=== PATIENT | female | born 1935 | race Caucasian/White ===

== ENCOUNTER 2016-09-04 | Outpatient (CLI) | payer MEDICARE, OTHER, MEDICAID | END 2016-09-04 12:36 | disposition critical access hospital (66) | CPT/HCPCS: A0425; A0429 ==

== ENCOUNTER 2016-09-04 12:52 | Inpatient (IN) | payer MEDICARE, OTHER, MEDICAID ==
[2016-09-04] MEDS ORDERED: HYDROcod/ACETAM 5/325 MG TABLET PO STA (12:59)
[2016-09-04] MEDS ORDERED: HYDROcod/ACETAM 5/325 MG TABLET ONE (13:04)
[2016-09-04] MEDS ORDERED: NYSTATIN POWDER 15 GM TOP STA (13:30)
[2016-09-04] MEDS ORDERED: NYSTATIN 500000 UNITS/5 ML UDC PO ONE (13:43)
[2016-09-04] MEDS ORDERED: NYSTATIN CREAM 15 GM TUBE TOP ONE (13:44)
[2016-09-04] MEDS ORDERED: SODIUM CHLORIDE FLUSH 0.9% 10 ML SYRINGE IVP PRN (15:58)
[2016-09-04] MEDS ORDERED: guaiFENesin 100 MG/5 ML UDC PO PRN (16:09)
[2016-09-04] MEDS ORDERED: MAGNESIUM HYDROXIDE 2,400 MG/30 ML UDC PO PRN (16:09)
[2016-09-04] MEDS ORDERED: DOCUSATE SODIUM 250 MG CAPSULE PO PRN (16:09)
[2016-09-04] MEDS ORDERED: BENZONATATE 100 MG CAPSULE PO PRN (16:09)
[2016-09-04] MEDS ORDERED: CALCIUM CARBONATE CHEW 500 MG TABLET PO PRN (16:09)
[2016-09-04] MEDS ORDERED: ALBUTEROL NEB 2.5 MG/3 ML INH PRN (17:06)
[2016-09-04] MEDS: DONEPEZIL 5 MG TABLET PO SCH (18:26)
[2016-09-04] MEDS: SODIUM CHLORIDE 0.9% 1,000 ML IV SCH (18:26)
[2016-09-04] MEDS: CARBIDOPA/LEVODOPA 25 MG/100 MG TABLET PO SCH (20:41)
[2016-09-04] MEDS: METOPROLOL TARTRATE 50 MG TABLET PO SCH (20:42)
[2016-09-04] MEDS: CITALOPRAM 10 MG TABLET PO SCH (20:42)
[2016-09-04] MEDS: FERROUS SULFATE 325 MG TABLET PO SCH (20:43)
[2016-09-04] MEDS: ATORVASTATIN 10 MG TABLET PO SCH (20:43)
[2016-09-04] MEDS: SENNA 8.6 MG TABLET PO SCH (20:44)
[2016-09-04] MEDS: SODIUM CHLORIDE FLUSH 0.9% 10 ML SYRINGE IVP SCH (21:36)
[2016-09-04] MEDS: NITROFURANTOIN MACRO 100 MG CAPSULE PO SCH (21:39)
[2016-09-04] MEDS: oxyCODONE 5 MG TABLET PO PRN (23:49)
[2016-09-05] MEDS: SODIUM CHLORIDE 0.9% 1,000 ML IV SCH ×3 (02:57→23:12)
[2016-09-05] MEDS: oxyCODONE 5 MG TABLET PO PRN ×2 (03:51→14:35)
[2016-09-05] MEDS: SODIUM CHLORIDE FLUSH 0.9% 10 ML SYRINGE IVP SCH ×3 (05:18→21:32)
[2016-09-05] MEDS ORDERED: SODIUM CHLORIDE 0.9% 1,000 ML IV ONE (09:01)
[2016-09-05] MEDS ORDERED: ceFAZolin 2 GM/50 ML 50 ML IV ONE (09:30)
[2016-09-05] MEDS ORDERED: LACTATED RINGERS 1,000 ML IV ONE (09:39)
[2016-09-05] MEDS ORDERED: MIDAZOLAM 2 MG/2 ML VIAL IVP ONE (09:45)
[2016-09-05] MEDS ORDERED: LIDOCAINE-PF 2% 10 ML AMP SUBQ ONE (09:45)
[2016-09-05] MEDS ORDERED: ePHEDrine 50 MG/ML AMP IVP ONE (09:45)
[2016-09-05] MEDS ORDERED: DEXAMETHASONE 4 MG/ML VIAL IVP ONE (09:45)
[2016-09-05] MEDS ORDERED: ONDANSETRON 4 MG/2 ML VIAL IVP ONE (09:45)
[2016-09-05] MEDS ORDERED: PROPOFOL 200 MG/20 ML VIAL IVP ONE (09:45)
[2016-09-05] MEDS ORDERED: ceFAZolin 1 GM VIAL IV ONE (09:45)
[2016-09-05] MEDS ORDERED: fentaNYL 100 MCG/2 ML VIAL IVP ONE (09:45)
[2016-09-05] MEDS ORDERED: BUPIVACAINE 0.25%-EPI 1:200000 PF 30 ML VIAL SUBQ ONE (09:56)
[2016-09-05] MEDS ORDERED: PROCHLORPERAZINE 10 MG/2 ML VIAL IVP PRN (10:12)
[2016-09-05] MEDS: PSYLLIUM PACKET PO SCH (10:12)
[2016-09-05] MEDS ORDERED: ACETAMINOPHEN 1,000 MG/100 ML 100 ML IV PRN (10:12)
[2016-09-05] MEDS: POLYETHYLENE GLYCOL 3350 17 GM PACKET PO SCH (10:12)
[2016-09-05] MEDS ORDERED: MORPHINE 2 MG/ML SYRINGE IVP PRN (10:12)
[2016-09-05] MEDS ORDERED: SODIUM CHLORIDE FLUSH 0.9% 10 ML SYRINGE IVP PRN (10:12)
[2016-09-05] MEDS ORDERED: ALBUTEROL NEB 2.5 MG/3 ML INH ONE (10:16)
[2016-09-05] MEDS ORDERED: RACEPINEPHRINE 2.25% NEB INH ONE (10:24)
[2016-09-05] MEDS ORDERED: SODIUM CHLORIDE INHALATION 3 ML NEB ONE (10:24)
[2016-09-05] MEDS ORDERED: diphenhydrAMINE INJ 50 MG/ML VIAL ONE (10:33)
[2016-09-05] MEDS: CARBIDOPA/LEVODOPA 25 MG/100 MG TABLET PO SCH ×2 (13:05→21:20)
[2016-09-05] MEDS: FAMOTIDINE 20 MG TABLET PO SCH (13:06)
[2016-09-05] MEDS: LORATADINE 10 MG TABLET PO SCH (13:06)
[2016-09-05] MEDS: NITROFURANTOIN MACRO 100 MG CAPSULE PO SCH ×2 (13:06→21:32)
[2016-09-05] MEDS: METOPROLOL TARTRATE 50 MG TABLET PO SCH ×2 (13:06→21:25)
[2016-09-05] MEDS: ISOSORBIDE MONONITRATE ER 30 MG TABLET PO SCH (13:07)
[2016-09-05] MEDS: FERROUS SULFATE 325 MG TABLET PO SCH ×2 (13:12→21:20)
[2016-09-05] MEDS: ASPIRIN 325 MG TABLET PO SCH (17:32)
[2016-09-05] MEDS: DONEPEZIL 5 MG TABLET PO SCH (17:32)
[2016-09-05] MEDS: ceFAZolin 2 GM/50 ML 50 ML IV SCH (17:33)
[2016-09-05] MEDS: MIN OIL/DIMETHICON/COCONUT OIL 92 GM TUBE TOP PRN (20:00)
[2016-09-05] MEDS: NYSTATIN CREAM 15 GM TUBE TOP PRN (20:00)
[2016-09-05] MEDS: ATORVASTATIN 10 MG TABLET PO SCH (21:20)
[2016-09-05] MEDS: SENNA 8.6 MG TABLET PO SCH (21:20)
[2016-09-05] MEDS: CITALOPRAM 10 MG TABLET PO SCH (21:20)
[2016-09-05] MEDS: oxyCOD/ACETAMIN 5 MG/325 MG TABLET PO PRN (21:38)
[2016-09-06] MEDS: ceFAZolin 2 GM/50 ML 50 ML IV SCH (01:55)
[2016-09-06] MEDS: oxyCOD/ACETAMIN 5 MG/325 MG TABLET PO PRN ×2 (02:01→18:22)
[2016-09-06] MEDS: SODIUM CHLORIDE FLUSH 0.9% 10 ML SYRINGE IVP SCH ×3 (05:04→20:22)
[2016-09-06] MEDS: CARBIDOPA/LEVODOPA 25 MG/100 MG TABLET PO SCH ×2 (08:10→20:21)
[2016-09-06] MEDS: FAMOTIDINE 20 MG TABLET PO SCH ×2 (08:10→08:11)
[2016-09-06] MEDS: SENNA 8.6 MG TABLET PO SCH ×2 (08:11→20:22)
[2016-09-06] MEDS: NITROFURANTOIN MACRO 100 MG CAPSULE PO SCH ×2 (08:11→20:22)
[2016-09-06] MEDS: DOCUSATE SODIUM 250 MG CAPSULE PO SCH (08:11)
[2016-09-06] MEDS: FERROUS SULFATE 325 MG TABLET PO SCH ×2 (08:11→20:21)
[2016-09-06] MEDS: ISOSORBIDE MONONITRATE ER 30 MG TABLET PO SCH (08:12)
[2016-09-06] MEDS: METOPROLOL TARTRATE 50 MG TABLET PO SCH ×2 (08:12→20:20)
[2016-09-06] MEDS: PSYLLIUM PACKET PO SCH (08:12)
[2016-09-06] MEDS: POLYETHYLENE GLYCOL 3350 17 GM PACKET PO SCH (08:12)
[2016-09-06] MEDS: LORATADINE 10 MG TABLET PO SCH (08:12)
[2016-09-06] MEDS: ASPIRIN 325 MG TABLET PO SCH ×2 (08:13→17:05)
[2016-09-06] MEDS: SODIUM CHLORIDE 0.9% 1,000 ML IV SCH ×2 (08:19→22:02)
[2016-09-06] MEDS: DONEPEZIL 5 MG TABLET PO SCH (17:05)
[2016-09-06] MEDS: CITALOPRAM 10 MG TABLET PO SCH (20:21)
[2016-09-06] MEDS: ATORVASTATIN 10 MG TABLET PO SCH (20:21)
[2016-09-06] MEDS: MIN OIL/DIMETHICON/COCONUT OIL 92 GM TUBE TOP PRN (20:40)
[2016-09-06] MEDS: NYSTATIN CREAM 15 GM TUBE TOP PRN (20:41)
[2016-09-07] MEDS: ACETAMINOPHEN 325 MG TABLET PO PRN ×2 (04:13→10:45)
[2016-09-07] MEDS: SODIUM CHLORIDE FLUSH 0.9% 10 ML SYRINGE IVP SCH ×2 (06:00→15:49)
[2016-09-07] MEDS: ASPIRIN 325 MG TABLET PO SCH (08:47)
[2016-09-07] MEDS: CARBIDOPA/LEVODOPA 25 MG/100 MG TABLET PO SCH (08:48)
[2016-09-07] MEDS: DOCUSATE SODIUM 250 MG CAPSULE PO SCH (08:49)
[2016-09-07] MEDS: FERROUS SULFATE 325 MG TABLET PO SCH (08:49)
[2016-09-07] MEDS: NITROFURANTOIN MACRO 100 MG CAPSULE PO SCH (08:53)
[2016-09-07] MEDS: SENNA 8.6 MG TABLET PO SCH (08:55)
[2016-09-07] MEDS: METOPROLOL TARTRATE 50 MG TABLET PO SCH (08:57)
[2016-09-07] MEDS: POLYETHYLENE GLYCOL 3350 17 GM PACKET PO SCH (08:58)
[2016-09-07] MEDS: PSYLLIUM PACKET PO SCH (08:58)
[2016-09-07] MEDS: ISOSORBIDE MONONITRATE ER 30 MG TABLET PO SCH (10:42)
[2016-09-07] MEDS: oxyCOD/ACETAMIN 5 MG/325 MG TABLET PO PRN (13:02)
== END 2016-09-07 16:00 | DRG 481 ==
PROC: 0QH734Z Insertion of Internal Fixation Device into Left Upper Femur, Percutaneous Approach (ICD-10-PCS; principal; 2016-09-05 09:00)
DX: S72.012A Unspecified intracapsular fracture of left femur, initial encounter for closed fracture (principal); S52.125A Nondisplaced fracture of head of left radius, initial encounter for closed fracture; S72.002A Fracture of unspecified part of neck of left femur, initial encounter for closed fracture; S09.90XA Unspecified injury of head, initial encounter; M25.562 Pain in left knee; N39.0 Urinary tract infection, site not specified; S52.122A Displaced fracture of head of left radius, initial encounter for closed fracture; W01.0XXA Fall on same level from slipping, tripping and stumbling without subsequent striking against object, initial encounter; I10 Essential (primary) hypertension; G20 Parkinson's disease; F02.80 Dementia in other diseases classified elsewhere, unspecified severity, without behavioral disturbance, psychotic disturbance, mood disturbance, and anxiety; E78.00 Pure hypercholesterolemia, unspecified; Z95.1 Presence of aortocoronary bypass graft; K59.00 Constipation, unspecified; B35.9 Dermatophytosis, unspecified; B37.2 Candidiasis of skin and nail; K21.9 Gastro-esophageal reflux disease without esophagitis; F41.8 Other specified anxiety disorders; G89.29 Other chronic pain; I25.10 Atherosclerotic heart disease of native coronary artery without angina pectoris; I25.2 Old myocardial infarction; M81.0 Age-related osteoporosis without current pathological fracture; Z66 Do not resuscitate; Z87.891 Personal history of nicotine dependence; Z91.81 History of falling; Z85.3 Personal history of malignant neoplasm of breast; Z85.22 Personal history of malignant neoplasm of nasal cavities, middle ear, and accessory sinuses; Z86.73 Personal history of transient ischemic attack (TIA), and cerebral infarction without residual deficits; Z79.82 Long term (current) use of aspirin; Z79.899 Other long term (current) drug therapy

== ENCOUNTER 2016-09-29 08:00 | Outpatient (CLI) | payer MEDICAID, MEDICARE, OTHER | END 2016-09-29 08:01 | disposition home or self-care (01) | DX: N39.0 Urinary tract infection, site not specified (principal) ==

== ENCOUNTER 2017-12-14 09:55 | Outpatient (CLI) | payer MEDICARE, OTHER, MEDICAID | END 2017-12-14 09:56 | disposition critical access hospital (66) | LOC: EMS 09:55 | PROVIDERS: ATTEND Surgery | DX: S09.92XA Unspecified injury of nose, initial encounter (principal); M25.552 Pain in left hip; W18.30XA Fall on same level, unspecified, initial encounter; Y93.01 Activity, walking, marching and hiking; Y92.098 Other place in other non-institutional residence as the place of occurrence of the external cause | CPT/HCPCS: A0425; A0429 ==

== ENCOUNTER 2017-12-14 10:14 | Emergency (ER) | payer MEDICARE, OTHER, MEDICAID ==
--- NOTE | 2017-12-14 11:00 | CT Report ---
EXAM: CT HEAD EXAM DATE: 12/14/2017 10:46 AM. CLINICAL HISTORY: Fall, facial trauma, repetitive amnesia. COMPARISON: 09/04/2016, 06/22/2016. TECHNIQUE: Multiaxial CT images were obtained from the foramen magnum to the vertex. Reformats: Coron al. IV contrast: None. In accordance with CT protocol optimization, one or more of the following dose reduction techniques w ere utilized for this exam: automated exposure control, adjustment of mA and/or KV based on patient s ize, or use of iterative reconstructive technique. FINDINGS: Parenchyma: No intraparenchymal hemorrhage. No evidence of mass, midline shift, or CT findings of acu te infarction. Areas of focal encephalomalacia in the left superior medial frontal cortex, right supe rior lateral frontal cortex, and right posterior inferior occipital cortex appear similar to the prio r exam, consistent with remote prior infarcts. Small left cerebellar lacunar infarct is unchanged. Gr ay-white differentiation is distinct. Diffuse chronic microangiopathic white matter changes are evide nt. Extraaxial Spaces: Normal for age. No subdural or epidural collections identified. Ventricles: The ventricles and cortical sulci are enlarged, consistent with age-related tissue loss. Sinuses and orbits: There is complete opacification of the right frontal sinus as seen on prior exams , likely chronic. There is evidence of prior bilateral maxillary sinus surgery. There is moderate muc osal thickening and a small amount of fluid in the bilateral maxillary sinuses. The remainder of visu alized paranasal sinuses and mastoid air cells are clear. The orbits are unremarkable. Bones: No evidence of fracture or calvarial defect. Other: None. IMPRESSION: 1. No acute intracranial hemorrhage, mass effect, or CT evidence of acute infarct. 2. Remote prior bilateral frontal and right occipital infarcts, as seen on prior exams. 3. Similar appearance of age-related volume loss and diffuse white matter changes suggestive of micro angiopathy. 4. Chronic opacification of the right frontal sinus. There is evidence of prior bilateral maxillary s inus surgery there is moderate mucosal thickening and a small amount of fluid in the bilateral maxill arcadio sinuses. [facility] Referring Provider Line: [phone] SITE ID: [id number]
--- NOTE | 2017-12-14 11:17 | ED Physician Documentation ---
PD HPI Fall - Stated complaint Stated Complaint: GLF - Chief complaint Chief Complaint: Trauma Hd/Nk - History obtained from History obtained from: Patient, Family, EMS - History of Present Illness Mechanism of injury: Slipped Fall distance: Standing position Where injury occurred: Home Timing - onset: Today Injury(ies) location: Face, Left Lower Extremity Quality of pain: Pain Associated symptoms: No: LOC, AMS, Amnesia, Ear drainage, Nasal drainage, Neck pain, Weakness, Paresthesias, Dyspnea, Nausea / vomiting Symptoms improve with: Rest Worsens with: Movement, Palpation Contributing factors: Anticoagulated (no plavix) Similar symptoms before: Has not had sx before Recently seen: Not recently seen - Additional information Additional information: 82-year-old female with some cognitive decline has been using a walker in her home and this was recently changed when the carpet was changed to linoleum carlos. Today the patient was using her walker on the carlos and she got going a bit too fast and fell forward onto her face. She complains of some pain in her chin and a fat lip and has some pain in her left knee as well. She denies any loss of consciousness with the fall and she denies any nausea or dizziness associated. Review of Systems Constitutional: denies: Fever Eyes: denies: Decreased vision Ears: denies: Ear pain Nose: denies: Congestion Throat: denies: Sore throat Cardiac: denies: Chest pain / pressure Respiratory: denies: Dyspnea, Cough GI: denies: Vomiting PD PAST MEDICAL HISTORY - Past Medical History Past Medical History: Yes Cardiovascular: Hypertension, High cholesterol, Coronary artery disease, [place], Other GI: GERD Psych: Depression, Anxiety Musculoskeletal: Osteoarthritis Derm: Other - Past Surgical History Past Surgical History: Yes /DETAIL ASSEMBLER: Mastectomy Cardiovascular: CABG - Present Medications Home Medications: Ambulatory Orders Medication Instructions Recorded Confirmed Citalopram Hydrobromide 20 mg PO QPM 03/02/14 09/05/16 [Citalopram HBr] Valsartan [Diovan] 160 mg PO QPM 03/02/14 09/05/16 Donepezil [Aricept] 5 mg PO QDDINNER 10/16/15 09/05/16 Metoprolol Tartrate 50 mg PO BID 10/16/15 09/05/16 Psyllium [Metamucil] 1 packet PO DAILY 03/30/16 09/05/16 Senna [Senokot] 17.2 mg PO QPM 03/30/16 09/05/16 Aspirin [Aspirin EC] 162 mg PO DAILY 06/22/16 09/05/16 Atorvastatin Calcium 20 mg PO QPM 06/22/16 09/05/16 Calcium Carbonate [Tums (Calcium 1,000 mg PO Q4H PRN 06/22/16 09/05/16 Carbonate 500mg)] Carbidopa/Levodopa 1 tab PO BID 06/22/16 09/05/16 [Carbidopa-Levodopa 25-100 Tab] Docusate Sodium 250Mg Capsule 250 mg PO Q24H PRN 06/22/16 09/05/16 [Colace 250Mg Capsule] Ferrous Sulfate [Iron] 325 mg PO BID 06/22/16 09/05/16 Guaifenesin [Tussin] 200 mg PO Q4H PRN 06/22/16 09/05/16 Isosorbide Mononitrate ER [Imdur] 15 mg PO DAILY 06/22/16 09/05/16 Loratadine [Claritin] 10 mg PO DAILY 06/22/16 09/05/16 Magnesium Hydroxide [Milk of 2,400 mg PO Q6H PRN 06/22/16 09/05/16 Magnesia] traZODone [Desyrel] 75 mg PO QPM 06/22/16 09/05/16 Nystatin Cream [Mycostatin Cream] 1 applic TOP BID PRN #1 tube 06/23/16 09/05/16 Diazepam [Valium] 2 mg PO Q12H PRN 09/05/16 09/05/16 Megestrol Acetate [Megace] 400 mg PO BID 09/05/16 09/05/16 - Allergies Allergies/Adverse Reactions: Allergies Allergy/AdvReac Type Severity Reaction Status Date / Time lidocaine Allergy Unknown Unknown Verified 09/04/16 12:59 - Social History Does the pt smoke?: No Smoking Status: Never smoker Does the pt drink ETOH?: No Does the pt have substance abuse?: No - Immunizations Immunizations are current?: Yes - POLST Patient has POLST: Yes PD ED PE NORMAL - Vitals Vital signs reviewed: Yes (hypertensive) - General General: No acute distress, Well developed/nourished - HEENT HEENT: PERRL, EOMI, Ears normal, Moist mucous membranes, Other (There is a bruise to the left side of the chin ) - Neck Neck: Supple, no meningeal sign - Cardiac Cardiac: RRR, No murmur - Respiratory Respiratory: No respiratory distress, Clear bilaterally - Abdomen Abdomen: Soft, Non tender - Back Back: No CVA TTP, No spinal TTP - Derm Derm: Normal color, Warm and dry, No rash - Extremities Extremities: No deformity, No edema, Other (There is tenderness to the medial joint line on the left side. The ligaments are stable and the distal n/v is intact. ) Results - Vitals Vitals: Vital Signs - 24 hr 12/14/17 12/14/17 12/14/17 10:22 11:55 14:02 Temperature 36.4 C L Heart Rate 63 56 L 70 Respiratory 16 16 16 Rate Blood Pressure 182/90 H 164/69 H 169/96 H O2 Saturation 100 100 100 Oxygen O2 Source [] Room air O2 Source Room air - Labs Labs: Laboratory Tests 12/14/17 11:00 Urine Color YELLOW Urine Clarity CLEAR Urine pH 7.5 Ur Specific [place] 1.020 Urine Protein NEGATIVE Urine Glucose (UA) NEGATIVE Urine Ketones NEGATIVE Urine Occult Blood NEGATIVE Urine Nitrite NEGATIVE Urine Bilirubin NEGATIVE Urine Urobilinogen 0.2 (NORMAL) Ur Leukocyte Esterase NEGATIVE Ur Microscopic Review NOT INDICATED Urine Culture Comments NOT INDICATED - Rads (name of study) CT head without Radiology: Prelim report reviewed (Impression: 1. No acute intracranial hemorrhage, mass-effect, or CT evidence of acute infarct. Remote prior bilateral frontal and right occipital infarcts as seen on prior exams. Similar appearance of age-related volume loss and diffuse white matter changes consistent suggestive of microangiopathy. Chronic opacification of the right frontal sinus. There is evidence of prior bilateral maxillary sinus surgery there is moderate mucosal thickening and a small amount of fluid in the bilateral maxillary sinuses.), EMP read indepedently, See rad report knee left Radiology: Prelim report reviewed (Impression: Progressive lateral compartment degenerative changes which are now fairly severe. Chondrocalcinosis. Small joint effusion. No plain film evidence for fracture.), EMP read indepedently, See rad report PD MEDICAL DECISION MAKING - ED course Complexity details: reviewed old records, reviewed results, re-evaluated patient , considered differential, d/w patient, d/w family ED course: 82 y/o female with a GLF with injury to her face and left knee. She does not feel otherwise ill and has a reason for her fall today that is not related to her health. She does not appear injured by CT of head and x-ray of neck and she is accompanied by a son who presents to the ED to care for his mother. He is not able to get her into his truck for transport and she is transported by Taxi. Departure - Departure Disposition: 01 Home, Self Care Clinical Impression: Contusion of face Qualifiers: Encounter type: initial encounter Qualified Code(s): S00.83XA - Contusion of other part of head, initial encounter Contusion of knee Qualifiers: Encounter type: initial encounter Laterality: left Qualified Code(s): S80.02XA - Contusion of left knee, initial encounter Condition: Stable Instructions: ED Contusion Lower Ext, ED Contusion Face Follow-Up: Gayla Werner ARNP [Primary Care Provider] - Discharge Date/Time: 12/14/17 14:27
[2017-12-14 11:31] LABS: BILIRUBIN,URINE NEGATIVE (NEGATIVE); GLUCOSE, URINE (UA) NEGATIVE (NEGATIVE); KETONES,URINE (UA) NEGATIVE (NEGATIVE); LEUKOCYTE ESTERASE, URINE NEGATIVE (NEGATIVE); NITRITE,URINE NEGATIVE (NEGATIVE); OCCULT BLOOD,URINE NEGATIVE (NEGATIVE); PH,URINE 7.5 PH (5.0-7.5); PROTEIN,URINE NEGATIVE (NEGATIVE); UROBILINOGEN,URINE 0.2 (NORMAL) E.U./dL (NORMAL)
[2017-12-14 11:33] LABS: CLARITY,URINE CLEAR (CLEAR)
--- NOTE | 2017-12-14 12:00 | XRAY Preliminary Report ---
Exam: XR KNEE 4 VIEW LT IMPRESSION: Progressive lateral compartment degenerative changes which are now fairly severe. Chondrocalcinosis. Small joint effusion. No plain film evidence for fracture. [facility] SITE ID: [id number]
--- NOTE | 2017-12-14 12:29 | XRAY Report ---
EXAM: LEFT KNEE RADIOGRAPHY EXAM DATE: 12/14/2017 11:45 AM. CLINICAL HISTORY: Fall. Lateral pain. COMPARISON: 09/04/2016. TECHNIQUE: 4 views. FINDINGS: Bones: Normal. No fractures or bone lesions. Joints: Moderate to severe lateral compartmental narrowing with remodeling of articular contours and small marginal osteophytes. Spurring of medial tibial spine and intercondylar notch. Chondrocalcinosi s. Small joint effusion. 16-degree valgus alignment. Soft Tissues: Atherosclerotic arterial calcifications. Medial lower thigh surgical clips. IMPRESSION: 1. Progressive lateral compartment degenerative changes, are now fairly severe. 2. Chondrocalcinosis. 3. Small joint effusion. 4. No plain film evidence for fracture. [facility] Referring Provider Line: [phone] SITE ID: [id number]
[2017-12-14 14:02] VITALS: BP 169/96
== END 2017-12-14 14:27 | disposition home or self-care (01) ==
LOC: EDUNIT# → ED 10:14
DX: S00.83XA Contusion of other part of head, initial encounter (principal); S80.02XA Contusion of left knee, initial encounter; W01.0XXA Fall on same level from slipping, tripping and stumbling without subsequent striking against object, initial encounter; Y93.01 Activity, walking, marching and hiking; Y92.009 Unspecified place in unspecified non-institutional (private) residence as the place of occurrence of the external cause; I10 Essential (primary) hypertension; E78.00 Pure hypercholesterolemia, unspecified; I25.2 Old myocardial infarction; I25.10 Atherosclerotic heart disease of native coronary artery without angina pectoris; Z95.1 Presence of aortocoronary bypass graft; Z79.82 Long term (current) use of aspirin
CPT/HCPCS: 70450; 81001; 81003; 87086; 99283; 99284

== ENCOUNTER 2018-01-01 21:39 | Outpatient (CLI) | payer MEDICARE, OTHER, MEDICAID | END 2018-01-01 21:40 | disposition critical access hospital (66) | LOC: EMS 21:39 | PROVIDERS: ATTEND Surgery | DX: H57.13 Ocular pain, bilateral (principal) | CPT/HCPCS: A0425; A0429 ==

== ENCOUNTER 2018-01-01 21:58 | Emergency (ER) | payer MEDICARE, OTHER, MEDICAID ==
[2018-01-01] MEDS ORDERED: ERYTHROMYCIN OPHTH OINT 1 GM TUBE EACHEYE STA (22:08)
--- NOTE | 2018-01-01 22:10 | ED Physician Documentation ---
History of Present Illness - Stated complaint Stated Complaint: EYE PAIN/PUFFY - Chief complaint Chief Complaint: Heent - History obtained from History obtained from: Patient, EMS - History of Present Illness Timing: Yesterday (She fell yesterday, it sounds like a mechanical fall that she is a little vague on the details. She says she fell head over heels and has a headache and injured her upper left arm. 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 Cardiovascular: CABG - Present Medications Home Medications: Ambulatory Orders Medication Instructions Recorded Confirmed Citalopram Hydrobromide 20 mg PO QPM 03/02/14 09/05/16 [Citalopram HBr] Valsartan [Diovan] 160 mg PO QPM 03/02/14 09/05/16 Donepezil [Aricept] 5 mg PO QDDINNER 10/16/15 09/05/16 Metoprolol Tartrate 50 mg PO BID 10/16/15 09/05/16 Psyllium [Metamucil] 1 packet PO DAILY 03/30/16 09/05/16 Senna [Senokot] 17.2 mg PO QPM 03/30/16 09/05/16 Aspirin [Aspirin EC] 162 mg PO DAILY 06/22/16 09/05/16 Atorvastatin Calcium 20 mg PO QPM 06/22/16 09/05/16 Calcium Carbonate [Tums (Calcium 1,000 mg PO Q4H PRN 06/22/16 09/05/16 Carbonate 500mg)] Carbidopa/Levodopa 1 tab PO BID 06/22/16 09/05/16 [Carbidopa-Levodopa 25-100 Tab] Docusate Sodium 250Mg Capsule 250 mg PO Q24H PRN 06/22/16 09/05/16 [Colace 250Mg Capsule] Ferrous Sulfate [Iron] 325 mg PO BID 06/22/16 09/05/16 Guaifenesin [Tussin] 200 mg PO Q4H PRN 06/22/16 09/05/16 Isosorbide Mononitrate ER [Imdur] 15 mg PO DAILY 06/22/16 09/05/16 Loratadine [Claritin] 10 mg PO DAILY 06/22/16 09/05/16 Magnesium Hydroxide [Milk of 2,400 mg PO Q6H PRN 06/22/16 09/05/16 Magnesia] traZODone [Desyrel] 75 mg PO QPM 06/22/16 09/05/16 Nystatin Cream [Mycostatin Cream] 1 applic TOP BID PRN #1 tube 06/23/16 09/05/16 Diazepam [Valium] 2 mg PO Q12H PRN 09/05/16 09/05/16 Megestrol Acetate [Megace] 400 mg PO BID 09/05/16 09/05/16 Erythromycin Base [Erythromycin] 1 applic OP 5XD 7 Days oint...g. 01/01/18 - Allergies Allergies/Adverse Reactions: Allergies Allergy/AdvReac Type Severity Reaction Status Date / Time lidocaine Allergy Unknown Unknown Verified 01/01/18 22:05 - Social History Does the pt smoke?: No Smoking Status: Never smoker Does the pt drink ETOH?: No Does the pt have substance abuse?: No - Immunizations Immunizations are current?: Yes - POLST Patient has POLST: Yes PD ED PE NORMAL - Vitals Vital signs reviewed: Yes - General General: No acute distress, Well developed/nourished, Other (definite memory issues) - HEENT HEENT: Other (Bilateral purulent conjunctivitis with small pupils but they are reactive) - Neck Neck: Supple, no meningeal sign, No bony TTP - Extremities Extremities: No edema, No calf tenderness / cord, Other (Mild tenderness the upper humerus on the left, only able to abduct to about 90.) - 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 Also potentially a fall yesterday and she was over in the CT scanner when her son arrived and confirmed that there was no fall more recently than a few weeks ago and she is already had her head image for that on December 14 which was negative at the time, there has been no interim fall. - Sepsis Event Vital Signs: Vital Signs - 24 hr 01/01/18 22:02 Temperature 36.4 C L Heart Rate 63 Respiratory 16 Rate Blood Pressure 157/66 H O2 Saturation 100 Oxygen O2 Source [With Activity] Room air O2 Source Room air Departure - Departure Disposition: Home, Self Care Clinical Impression: Conjunctivitis Qualifiers: Conjunctivitis type: acute Acute conjunctivitis type: bacterial Laterality: bilateral Qualified Code(s): H10.33 - Unspecified acute conjunctivitis, bilateral Condition: Good Instructions: ED Conjunctivitis Nonspecific Prescriptions: Erythromycin Base [Erythromycin] 1 applic OP 5XD 7 Days oint...g. Comments: Call your doctor to arrange a follow-up appointment, make the next available appointment. In the interim, return anytime if worse or if new symptoms develop. Your blood pressure was elevated today on check into the emergency department. This does not mean that you have hypertension, it is a common phenomenon to come to the emergency department and have elevated blood pressure. I recommend that you see your primary care physician within the week to have it rechecked when you are feeling better.
--- NOTE | 2018-01-01 23:53 | XRAY Report ---
Procedure Date: 01/01/2018 Accession Number: [id number] / [id number] Procedure: XR - Humerus LT CPT Code: FULL RESULT: EXAM: LEFT HUMERUS RADIOGRAPHY EXAM DATE: 01/01/2018 11:24 PM. CLINICAL HISTORY: Arm injury. Arm pain. COMPARISON: None. TECHNIQUE: 2 views. FINDINGS: Bones: No acute fracture or bony lesion. Joints: Degenerative changes of the left shoulder and left elbow. No dislocation. Soft Tissues: Left lung is clear. IMPRESSION: 1. No acute osseous abnormalities. [facility]
[2018-01-02 00:53] VITALS: BP 148/72
== END 2018-01-02 | disposition home or self-care (01) ==
LOC: EDUNIT# → ED 21:58 → SUPCPDRO 21:58 → ED 01-02
DX: H10.33 Unspecified acute conjunctivitis, bilateral (principal); I10 Essential (primary) hypertension; Z79.899 Other long term (current) drug therapy
CPT/HCPCS: 73060; 99283; J3490

== ENCOUNTER 2018-05-11 19:24 | Outpatient (CLI) | payer MEDICARE, OTHER, MEDICAID | END 2018-05-11 19:25 | disposition critical access hospital (66) | LOC: EMS 19:24 | PROVIDERS: ATTEND Surgery | DX: R51 Headache (principal); W01.0XXA Fall on same level from slipping, tripping and stumbling without subsequent striking against object, initial encounter; Y92.003 Bedroom of unspecified non-institutional (private) residence as the place of occurrence of the external cause | CPT/HCPCS: A0425; A0429 ==

== ENCOUNTER 2018-05-11 19:41 | Emergency (ER) | payer MEDICARE, OTHER, MEDICAID ==
--- NOTE | 2018-05-11 19:51 | ED Physician Documentation ---
PD HPI Fall - Stated complaint Stated Complaint: GLF - History obtained from History obtained from: Patient, EMS - History of Present Illness Mechanism of injury: Lost balance Fall distance: Standing position Where injury occurred: Home (lives at [facility]) Timing - onset: How many hours ago (1) Injury(ies) location: Head Pain level max: 5 Pain level now: 5 Quality of pain: Pain, Aching, Dull Associated symptoms: AMS (caregiver states "more altered" for the past week.). No: LOC, Amnesia, Seizures, Ear drainage, Nasal drainage, Neck pain, Weakness, Paresthesias, Dyspnea, Nausea / vomiting, Hematemesis, Abdominal distension Symptoms improve with: Rest Worsens with: Movement. No: Palpation Contributing factors: No: Anticoagulated, Intoxicated Recently seen: Not recently seen Review of Systems Unable to obtain: Dementia Constitutional: denies: Fever, Chills Ears: denies: Ear pain Nose: denies: Rhinorrhea / runny nose, Congestion Respiratory: denies: Cough GI: denies: Vomiting, Diarrhea Skin: denies: Rash Musculoskeletal: denies: Neck pain, Back pain Neurologic: denies: Focal weakness, Numbness PD PAST MEDICAL HISTORY - Past Medical History Cardiovascular: Hypertension, High cholesterol, Coronary artery disease, [place], O ther GI: GERD Psych: Depression, Anxiety Musculoskeletal: Osteoarthritis Derm: Other - Past Surgical History Past Surgical History: Yes /BUILDINGS [employer] GR[employer]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 DIRECTOR: Mastectomy Cardiovascular: CABG - Present Medications Home Medications: Ambulatory Orders Medication Instructions Recorded Confirmed Citalopram Hydrobromide 20 mg PO QPM 03/02/14 09/05/16 [Citalopram HBr] Valsartan [Diovan] 160 mg PO QPM 03/02/14 09/05/16 Donepezil [Aricept] 5 mg PO QDDINNER 10/16/15 09/05/16 Metoprolol Tartrate 50 mg PO BID 10/16/15 09/05/16 Psyllium [Metamucil] 1 packet PO DAILY 03/30/16 09/05/16 Senna [Senokot] 17.2 mg PO QPM 03/30/16 09/05/16 Aspirin [Aspirin EC] 162 mg PO DAILY 06/22/16 09/05/16 Atorvastatin Calcium 20 mg PO QPM 06/22/16 09/05/16 Calcium Carbonate [Tums (Calcium 1,000 mg PO Q4H PRN 06/22/16 09/05/16 Carbonate 500mg)] Carbidopa/Levodopa 1 tab PO BID 06/22/16 09/05/16 [Carbidopa-Levodopa 25-100 Tab] Docusate Sodium 250Mg Capsule 250 mg PO Q24H PRN 06/22/16 09/05/16 [Colace 250Mg Capsule] Ferrous Sulfate [Iron] 325 mg PO BID 06/22/16 09/05/16 Guaifenesin [Tussin] 200 mg PO Q4H PRN 06/22/16 09/05/16 Isosorbide Mononitrate ER [Imdur] 15 mg PO DAILY 06/22/16 09/05/16 Loratadine [Claritin] 10 mg PO DAILY 06/22/16 09/05/16 Magnesium Hydroxide [Milk of 2,400 mg PO Q6H PRN 06/22/16 09/05/16 Magnesia] traZODone [Desyrel] 75 mg PO QPM 06/22/16 09/05/16 Nystatin Cream [Mycostatin Cream] 1 applic TOP BID PRN #1 tube 06/23/16 09/05/16 Diazepam [Valium] 2 mg PO Q12H PRN 09/05/16 09/05/16 Megestrol Acetate [Megace] 400 mg PO BID 09/05/16 09/05/16 Erythromycin Base [Erythromycin] 1 applic OP 5XD 7 Days oint...g. 01/01/18 - Allergies Allergies/Adverse Reactions: Allergies Allergy/AdvReac Type Severity Reaction Status Date / Time lidocaine Allergy Unknown Unknown Verified 05/11/18 19:50 - Social History Does the pt smoke?: No Smoking Status: Never smoker Does the pt drink ETOH?: No Does the pt have substance abuse?: No - Immunizations Immunizations are current?: Yes - POLST Patient has POLST: Yes PD ED PE NORMAL - Vitals Vital signs reviewed: Yes - General General: No acute distress, Well developed/nourished, Other (alert, oriented to person and place) - HEENT HEENT: PERRL, Moist mucous membranes - Neck Neck: Supple, no meningeal sign - Cardiac Cardiac: RRR, Strong equal pulses - Respiratory Respiratory: No respiratory distress, Clear bilaterally - Abdomen Abdomen: Soft, Non tender, Non distended - Back Back: No spinal TTP (No step-off or deformity) - Derm Derm: Warm and dry - Extremities Extremities: No deformity, Normal ROM s pain - Neuro Neuro: weatherization specialist 2-12 intact, No motor deficit, No sensory deficit Eye Opening: Spontaneous Motor: Obeys Commands Verbal: Confused GCS Score: 14 - Psych Psych: Normal mood, Normal affect Results - Vitals Vitals: Vital Signs - 24 hr 05/11/18 05/11/18 05/11/18 19:46 21:06 22:29 Temperature 36.5 C Heart Rate 68 62 60 Respiratory 16 16 20 Rate Blood Pressure 132/61 H 115/50 L 139/63 H O2 Saturation 99 97 99 Oxygen O2 Source [With Activity] Room air O2 Source Room air - Labs Labs: Laboratory Tests 05/11/18 05/11/18 05/11/18 19:56 19:56 20:30 WBC 4.9 RBC 3.90 L Hgb 13.0 Hct 37.4 MCV 96.0 MCH 33.3 H MCHC 34.7 RDW 13.9 Plt Count 122 L MPV 8.0 Neut # (Auto) 2.8 Lymph # (Auto) 1.2 L [place] # (Auto) 0.6 Eos # (Auto) 0.3 Baso # (Auto) 0.0 Absolute Nucleated RBC 0.00 Nucleated RBC % 0.0 Sodium 132 L Potassium 4.1 Chloride 101 Carbon Dioxide 24 Anion Gap 7.0 BUN 14 Creatinine 0.8 Estimated GFR (MDRD) 68 L Glucose 176 H Calcium 8.9 Total Bilirubin 0.6 AST 110 H ALT 27 Alkaline Phosphatase 101 Total Protein 7.1 Albumin 2.7 L Globulin 4.4 H Albumin/Globulin Ratio 0.6 L Lipase 165 H Urine Color YELLOW Urine Clarity CLEAR Urine pH 5.5 Ur Specific [place] 1.020 Urine Protein NEGATIVE Urine Glucose (UA) NEGATIVE Urine Ketones NEGATIVE Urine Occult Blood NEGATIVE Urine Nitrite NEGATIVE Urine Bilirubin NEGATIVE Urine Urobilinogen 1 (NORMAL) Ur Leukocyte Esterase NEGATIVE Ur Microscopic Review NOT INDICATED Urine Culture Comments NOT INDICATED - Rads (name of study) head CT Radiology: Prelim report reviewed, EMP read contemporaneously, See rad report (No acute intracranial abnormality) PD MEDICAL DECISION MAKING - ED course Complexity details: reviewed results, re-evaluated patient, considered differential, d/w patient, d/w family ED course: Patient is an 82-year-old female who presents to the emergency department after a ground-level fall today. No acute findings on head CT or laboratory testing. Lab abnormalities are consistent with chronic changes. She is alert and oriented at her normal baseline. Will discharge her back to [facility] where she is currently living. Patient and family counseled regarding signs and symptoms for which I believe and urgent re-evaluation would be necessary. Patient with good understanding of and agreement to plan and is comfortable going home at this time This document was made in part using voice recognition software. While efforts are made to proofread this document, sound alike and grammatical errors may occur. Upon discharging the patient, the son was upset that she did not qualify for an ambulance ride back to [facility] manner. He drove a truck but did not want to drive her home in the truck and would not accept help lifting her into the truck. We offered to have the fire department meet him at [facility] manner to help unload the patient but he still refuses this. It was also explained to the patient and son that she was able to walk independently and is able to sit upright in a wheelchair, therefore does not qualify for an ambulance ride back home. Offered to have him sign an ABN and call the ambulance to transport her anyway, patient and son both refused to sign the ABN. Son was quite agitated with myself as well as the nursing staff and mix house operator. He states that she will try to jump out of a cab. The patient states that she is not stupid and would not jump out of a moving vehicle. She has made no attempt to injure herself while in the emergency department or escape from the bed. She does not appear to be a significant elopement risk or flight risk at this time. supervisor hospitality house Teri was also present in the emergency department for the conversations. Patient also has no history of trying to jump out of a moving vehicle. Departure - Departure Disposition: 01 Home, Self Care Clinical Impression: Fall Qualifiers: Encounter type: initial encounter Qualified Code(s): W19.XXXA - Unspecified fall, initial encounter Head injury Qualifiers: Encounter type: initial encounter Qualified Code(s): S09.90XA - Unspecified injury of head, initial encounter Condition: Good Instructions: ED Head Injury Closed Follow-Up: Gayla Werner ARNP [Primary Care Provider] - As Needed Comments: Return if you worsen. Your CT scan is normal tonight. Your laboratory testing does not reveal any acute abnormalities and your urinalysis does not show infection. Follow-up with your doctor for further care Discharge Date/Time: 05/11/18 22:10
[2018-05-11 20:09] LABS: BASOPHILS % (AUTO) 0.6 %; EOSINOPHILS # (AUTO) 0.3 10^3/uL (0.0-0.7); EOSINOPHILS % (AUTO) 6.4 %; LYMPHOCYTES # (AUTO) 1.2 10^3/uL (1.5-3.5); LYMPHOCYTES % (AUTO) 23.9 %; MEAN CORPUSCULAR HEMOGLOBIN 33.3 pg (27.0-31.0); MEAN CORPUSCULAR HGB CONC 34.7 g/dL (32.0-36.0); MONOCYTES # (AUTO) 0.6 10^3/uL (0.0-1.0); NEUTROPHILS # (AUTO) 2.8 10^3/uL (1.5-6.6); NEUTROPHILS % (AUTO) 56.1 %; PLT - PLATELET COUNT 122 10^3/uL (130-450); RED CELL DISTRIBUTION WIDTH 13.9 % (12.0-15.0); WHITE BLOOD COUNT 4.9 x10^3/uL (4.8-10.8)
[2018-05-11 20:18] LABS: ALBUMIN 2.7 g/dL (3.2-5.5); ALBUMIN/GLOBULIN RATIO 0.6 (1.0-2.2); BILIRUBIN,TOTAL 0.6 mg/dL (0.2-1.0); CALCIUM 8.9 mg/dL (8.5-10.3); CREATININE 0.8 mg/dL (0.4-1.0); TOTAL PROTEIN 7.1 g/dL (6.7-8.2)
--- NOTE | 2018-05-11 20:37 | CT Report ---
Reason: fall, head injury Procedure Date: 05/11/2018 Accession Number: [id number] / [id number] Procedure: CT - Head W/O CPT Code: FULL RESULT: EXAM: CT HEAD EXAM DATE: 05/11/2018 08:19 PM. CLINICAL HISTORY: Increased confusion. Fall. Head injury. COMPARISON: HEAD W/O 12/14/2017 10:35 AM. TECHNIQUE: Multiaxial CT images were obtained from the foramen magnum to the vertex. Reformats: Sagittal and coronal. IV contrast: None. In accordance with CT protocol optimization, one or more of the following dose reduction techniques were utilized for this exam: automated exposure control, adjustment of mA and/or KV based on patient size, or use of iterative reconstructive technique. FINDINGS: Parenchyma: No intraparenchymal hemorrhage. 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 No evidence of mass, midline shift, or CT findings of acute infarction. Natarajan-white differentiation is distinct. Stable chronic microangiopathic white matter changes are evident. Extraaxial Spaces: Normal for age. No subdural or epidural collections identified. Ventricles: The ventricles and cortical sulci are prominent, consistent with age-related tissue loss. Sinuses and orbits: Chronic bilateral maxillary sinus disease with antrectomies. No fluid levels. Mastoids clear. Bones: No evidence of fracture or calvarial defect. Other: None. 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 RADIA
[2018-05-11 20:45] LABS: BILIRUBIN,URINE NEGATIVE (NEGATIVE); GLUCOSE, URINE (UA) NEGATIVE (NEGATIVE); KETONES,URINE (UA) NEGATIVE (NEGATIVE); LEUKOCYTE ESTERASE, URINE NEGATIVE (NEGATIVE); NITRITE,URINE NEGATIVE (NEGATIVE); OCCULT BLOOD,URINE NEGATIVE (NEGATIVE); PH,URINE 5.5 PH (5.0-7.5); PROTEIN,URINE NEGATIVE (NEGATIVE); UROBILINOGEN,URINE 1 (NORMAL) E.U./dL (NORMAL)
[2018-05-11 20:47] LABS: CLARITY,URINE CLEAR (CLEAR)
[2018-05-11 22:31] VITALS: BP 139/63
== END 2018-05-11 22:10 | disposition home or self-care (01) ==
LOC: EDUNIT# → ED 19:41
DX: S09.90XA Unspecified injury of head, initial encounter (principal); W18.30XA Fall on same level, unspecified, initial encounter; Y92.099 Unspecified place in other non-institutional residence as the place of occurrence of the external cause; I10 Essential (primary) hypertension; I25.10 Atherosclerotic heart disease of native coronary artery without angina pectoris; I25.2 Old myocardial infarction; F03.90 Unspecified dementia, unspecified severity, without behavioral disturbance, psychotic disturbance, mood disturbance, and anxiety; Z95.1 Presence of aortocoronary bypass graft
CPT/HCPCS: 36415; 70450; 80053; 81001; 81003; 83690; 85025; 87086; 99283; 99284

== ENCOUNTER 2018-06-15 14:11 | Outpatient (CLI) | payer MEDICARE, OTHER, MEDICAID ==
[2018-06-15] MEDS ORDERED: IOVERSOL 320 50 ML VIAL ONE (14:23)
[2018-06-15] MEDS ORDERED: IOVERSOL 320 100 ML VIAL IVP ONE ×2 (14:23→17:06)
[2018-06-15] MEDS ORDERED: IOVERSOL 320 50 ML VIAL PO ONE (17:05)
--- NOTE | 2018-06-15 17:43 | CT Report ---
Reason: STAGE IV R BREAST CANCER Procedure Date: 06/15/2018 Accession Number: [id number] / [id number] Procedure: CT - Abdomen/Pelvis W/ CPT Code: FULL RESULT: EXAM: CT CHEST WITH CONTRAST CT ABDOMEN AND PELVIS WITH CONTRAST EXAM DATE: 06/15/2018 03:57 PM. CLINICAL HISTORY: Stage IV right breast cancer. COMPARISONS: ABDOMEN/PELVIS W/ 04/01/2016 1:27 PM ABDOMEN/PELVIS W/ 06/15/2018 3:57 PM. TECHNIQUE: Routine helical CT imaging was performed through the chest, abdomen and pelvis. IV contrast: 90 mL Optiray 320. Reconstructions: Coronal and sagittal. Oral contrast was given. In accordance with CT protocol optimization, one or more of the following dose reduction techniques were utilized for this exam: automated exposure control, adjustment of mA and/or KV based on patient size, or use of iterative reconstructive technique. FINDINGS: Mediastinum: No thoracic aortic aneurysm or dissection. Coronary artery calcification. Prominent heart size. Subcarinal lymph node is prominent measuring 8 mm. Right axillary and chest wall malignant appearing mass measuring 14 x 4.9 x 5.9 cm, extends inferior to the right subclavian vessels, appears to invade the right pectoralis minor muscle. Lungs: Multiple bilateral pulmonary nodules. One of the largest pulmonary nodules is seen in the left upper lobe lingula measuring 1.8 x 1.5 cm on image #35. There is a left upper lobe pulmonary nodule on axial image 24 measuring 9 mm. There is a right lower lobe lateral pulmonary nodule measuring 1.3 cm on axial image 37. There is a right middle lobe anterior pleural-based nodule measuring 1 cm. Right upper lobe posterolateral pulmonary nodule measures 4 mm. Minimal bibasilar pulmonary fibrotic changes are noted, could be age-related. Mild reticular hazy opacities seen anteriorly in the left upper lobe, also could represent scarring. No pleural effusion or pneumothorax. Liver: Multiple new liver metastases, one of the largest is ill defined, seen anteriorly in the right hepatic lobe measuring 4.4 x 3.2 cm. Liver masses are seen in both the right and left hepatic lobe. Focal liver calcification anteriorly in the right hepatic lobe. Mild perihepatic ascites. Gallbladder: Unremarkable. Bile ducts: Unremarkable. New portacaval lymphadenopathy measuring 3.1 x 4.9 cm. This causes mass effect on the main portal vein pushing it anteriorly. More inferiorly is another lymphadenopathy between the pancreas and IVC, measures 3.9 x 2.5 cm. Pancreas: Periceliac lymphadenopathy seen superior to the head and body of the pancreas measuring 1.9 cm. These lymphadenopathy are new. New low density masses seen at the body of the pancreas, two are seen, one measures 1.5 x 1.3 cm and the other measures 1.2 x 1.8 cm. The pancreatic duct is dilated proximal to this. These lesions are low Hounsfield units. This is new compared to the prior. Lymphadenopathy seen superior to the pancreas and splenic artery measures 1.8 cm. Spleen: Mild perisplenic ascites. New small low density lesion seen in the spleen measuring 8 mm, could represent metastasis. Adrenals: Unremarkable. Kidneys: Mild bilateral renal atrophy. No hydronephrosis. Bowel: Moderate sigmoid diverticulosis. No acute bowel findings are seen. No evidence for bowel obstruction. Mild perisplenic and perihepatic ascites. No free air. Pelvis: The bladder and remaining pelvic organs appear unremarkable. Status post hysterectomy. Marked atherosclerotic calcification of the abdominal aorta and its branches. No acute bone findings. Mild anterolisthesis of L4 on L5 and L5 on S1 most likely degenerative. Internal fixation hardware left proximal femur. IMPRESSION: 1. Right axillary and chest wall malignant-appearing mass measuring 14 x 4.9 x 5.9 cm, extends inferior to the right subclavian vessels, appears to invade the right pectoralis minor muscle. 2. Multiple pulmonary nodules consistent with metastases. 3. Multiple liver metastases. 4. Portacaval and peripancreatic lymphadenopathy consistent with metastases. 5. New low density masses in the body of the pancreas causing pancreatic duct dilatation at the tail, could represent metastases versus primary pancreatic malignancy. 6. New small splenic low-density lesion, could represent metastasis. 7. Mild perihepatic and perisplenic ascites. 8. Moderate sigmoid diverticulosis. 9. See above. RADIA
== END 2018-06-15 14:12 | disposition home or self-care (01) ==
LOC: DI 14:11
PROVIDERS: ATTEND Surgery
DX: C50.911 Malignant neoplasm of unspecified site of right female breast (principal); C79.89 Secondary malignant neoplasm of other specified sites; C78.7 Secondary malignant neoplasm of liver and intrahepatic bile duct; R18.8 Other ascites; K57.30 Diverticulosis of large intestine without perforation or abscess without bleeding
CPT/HCPCS: 36415; 71260; 74177; 82565; Q9967

== ENCOUNTER 2018-06-15 14:15 | Outpatient (CLI) | payer MEDICARE, OTHER, MEDICAID ==
[2018-06-15 14:45] LABS: CREATININE 0.8 mg/dL (0.4-1.0)
== END 2018-06-15 14:16 | disposition home or self-care (01) ==
LOC: LAB 14:15
PROVIDERS: ATTEND Surgery
DX: C50.911 Malignant neoplasm of unspecified site of right female breast (principal)
CPT/HCPCS: 36415; 82565